=== PATIENT | male | born 1970 | race Caucasian/White ===

== ENCOUNTER 2022-12-23 03:42 | Emergency (ER) | payer OTHER ==
[~2022-12-23] VITALS: Ht 177.8 cm; Wt 95.3 kg
[2022-12-23] MEDS ORDERED: PREDNISONE10 MG PO (04:03)
== END 2022-12-23 04:27 | disposition home or self-care (01) ==
LOC: ED 03:42
DX: M54.42 Lumbago with sciatica, left side (principal); I10 Essential (primary) hypertension